=== PATIENT | female | born 1975 | race Caucasian/White ===

== ENCOUNTER 2017-05-19 17:44 | Emergency (ER) | payer OTHER ==
[2017-05-19] MEDS ORDERED: Rocephin 1000 MG INJ IM ONE (19:16)
[2017-05-19] MEDS ORDERED: TORAdol 30 mg Injection IM ONE (19:16)
[2017-05-19] MEDS ORDERED: TORAdol 30 mg Injection ONE (19:21)
[2017-05-19] MEDS ORDERED: XYLOCAINE 1% HCL 20 ML MDV ONE (19:22)
[2017-05-19] MEDS ORDERED: Rocephin 1000 MG INJ ONE (19:22)
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
[2017-05-19 19:54] VITALS: BP 142/88; PULSE 88; O2SAT 97
== END 2017-05-19 19:59 | disposition home or self-care (01) ==
LOC: ED 17:44
DX: H66.91 Otitis media, unspecified, right ear (principal); J02.9 Acute pharyngitis, unspecified; J32.9 Chronic sinusitis, unspecified; G40.909 Epilepsy, unspecified, not intractable, without status epilepticus; J45.909 Unspecified asthma, uncomplicated; F41.8 Other specified anxiety disorders; Z79.899 Other long term (current) drug therapy
CPT/HCPCS: 96372; 99284; J0696; J1885

== ENCOUNTER 2024-07-11 06:15 | Day surgery (SDC) | payer OTHER ==
[2024-07-11 06:48] VITALS: RESP 16
[2024-07-11] MEDS: Lactated Ringers 1,000 ML IV SCH (07:00)
[2024-07-11] MEDS ORDERED: propofoL IV ONE ×2 (07:46→07:54)
[2024-07-11 08:20] VITALS: PULSE 65
[2024-07-11 08:23] VITALS: O2SAT 98
[2024-07-11 08:35] VITALS: BP 136/82; TEMP 98
--- NOTE | 2024-07-12 12:40 | OP ---
SURGERY DATE/TIME: 07/11/2024 [id number] PREOPERATIVE DIAGNOSIS: Screening colonoscopy. POSTOPERATIVE DIAGNOSIS: Normal colon. PROCEDURE: Colonoscopy. SURGEON: Buck Lux MD ANESTHESIA: MAC by Bacilio Bender CRNA. ESTIMATED BLOOD LOSS: None. SPECIMENS: None. DESCRIPTION OF PROCEDURE AND FINDINGS: After informed and written consent was obtained, the patient was taken to the endoscopy suite. She was placed in the left lateral decubitus position, and an anesthesia was titrated to the desired level of consciousness. Digital rectal exam showed normal sphincter tone and no internal lesions. Scope was inserted into the rectum, and sequentially, the entire colonic mucosa was traversed. Level of the cecum was reached and verified with direct visualization of the ileocecal valve. Upon withdrawal, careful mucosal inspection revealed no gross mucosal abnormalities. Prior to withdrawal, retroflexion showed no internal lesions. The scope was removed, and patient was transferred to the recovery room in good condition.
== END 2024-07-11 08:34 | disposition home or self-care (01) ==
LOC: SDC 06:15
PROVIDERS: ATTEND Family Medicine
DX: Z12.11 Encounter for screening for malignant neoplasm of colon (principal)
CPT/HCPCS: J2704